=== PATIENT | female | born 1980 | race Caucasian/White ===

== ENCOUNTER → 2020-08-24 | Outpatient (CLI) | payer BC, SELFPAY ==
[2020-08-30 12:28] LABS: HPV APTIMA, High Risk Negative (Negative)
== END | disposition home or self-care (01) ==
LOC: LABSPEC 15:30
PROVIDERS: Visit Provider Student in an Organized Health Care Education/Training Program
DX: Z12.4 Encounter for screening for malignant neoplasm of cervix (principal)
CPT/HCPCS: 87624; 88175; G0145

== ENCOUNTER → 2020-08-31 08:58 | Outpatient (CLI) | payer BC, SELFPAY ==
[2020-08-31 10:05] LABS: Progesterone Level 8.43 ng/mL (See Comment)
== END ==
PROVIDERS: Visit Provider Student in an Organized Health Care Education/Training Program
DX: N97.9 Female infertility, unspecified (principal)
CPT/HCPCS: 36415; 84144

== ENCOUNTER → 2020-09-08 10:53 | Outpatient (CLI) | payer BC, SELFPAY ==
[2020-09-08 12:06] LABS: Estradiol 65.5 pg/mL; Follicle Stimulating Hormone 5.6 mIU/mL; Free T3 2.3 pg/mL (2.18-3.98); Luteinizing Hormone 4.3 mIU/mL; T4 Free Direct 1.02 ng/dL (0.76-1.46); Thyroid Stim Hormone (TSH) 0.56 uIU/mL (0.358-3.74)
[2020-09-08 14:59] LABS: HIV - WCH Non-Reactive (Nonreactive); Hepatitis B Surface Antibody Non-Reactive; Hepatitis B Surface Antigen Non-Reactive (Nonreactive); Rubella IgG Reactive (Nonreactive); Syphilis Antibodies Non-reactive
[2020-09-12 13:35] LABS: Anti-Mullerian Hormone,Serum 0.463 ng/mL (.); V-Zoster IgG (Immunity) 1218 index (Immune >165)
== END ==
PROVIDERS: Visit Provider Student in an Organized Health Care Education/Training Program
DX: N97.9 Female infertility, unspecified (principal)
CPT/HCPCS: 36415; 82670; 83001; 83002; 83036; 83516; 84439; 84443; 84481; 86703; 86706; 86762; 86780; 86787; 87340

== ENCOUNTER 2023-07-09 18:45 | Inpatient (IN) | payer BC, SELFPAY ==
[2023-07-09 19:19] VITALS: BMI 34.4
[2023-07-09 19:34] VITALS: BP 136/75; PULSE 89; PULSE 91; RESP 18; TEMP 36.9; O2SAT 96; O2SAT 97
[2023-07-09] MEDS: Lactated Ringers 1,000 ML 50 ML IV (20:01)
[2023-07-09 20:15] LABS: Absolute Lymphocyte Count 2.12 X10^3/uL (0.83-4.51); Absolute Neutrophil Count 6.6 X10^3/uL (2.0-7.7); Basophil# 0.02 X10^3/uL; Basophil% 0.2 % (0-1); Hematocrit 35.9 % (37-47); Hemoglobin 12.3 g/dL (12.0-15.0); Lymphocyte # 2.12 X10^3/ul (0.83-4.51); Lymphocyte % 22.2 % (19-41); Mean Corp Hgb Conc 34.3 g/dL (32-36); Mean Corpuscular Hgb 31.1 pg (27.0-32.0); Mean Corpuscular Volume 90.9 fL (81-99); Mean Platelet Vol. 10.2 fl (6.2-12.0); Monocyte# 0.66 X10^3/uL; Monocyte% 6.9 % (0-10); NRBC Flagged by Analyzer 0 % (0-5); Neutrophil # 6.58 X10^3/uL (2.7-7.7); Neutrophil % 69.1 % (47-70); Platelet Count 256 K/mm3 (150-450); RBC Distribution Width CV 13.2 % (11.6-14.6); RBC Distribution Width SD 44.1 fl (35.1-43.9); Red Blood Count 3.95 M/mm3 (4.2-5.4); White Blood Count 9.5 K/mm3 (4.4-11.0)
[2023-07-09] MEDS: 0.9% Normal Saline Single 100 ML IV.SOLN. INTRA-UTER (20:45)
--- NOTE | 2023-07-09 20:48 | PCM.HP.OB ---
HPI - General General Date of Admission: 07/09/23 Date of Service: 07/09/23 Chief Complaint: induction of labor HPI Narrative MELO LAI, is a 43 F who presents 1 para 0 for induction of labor due to age greater than 40 years of age. This was an in vitro that started as a Di Di twin gestation resulted in a single intrauterine . Past medical history significant for Graves' disease. Past medical history significant for Graves' disease, she had an abnormal 1 hour diabetes screen during the and a normal 3-hour test. She has a history of infertility. Social history she denies any tobacco alcohol or drug use Past surgical history significant for D&C with polypectomy Maternal Data Information Final EREN: 07/14/23 Gestational age: 39 2/7 PFSH PFS Medical History (Updated 07/09/23 @ 20:[address] Silvia Lancaster MD) Autoimmune disease Infertility Thyroid disorder Home Medications aspirin 81 mg chewable tablet (Aspirin Childrens) 2 tab PO DAILY pre-e prevention 07/09/23 [History Last Taken 07/09/23 08:00 2 tabs] vit no.164-ferrous gluconate 6 mg-folate 833.5 mcg DFE tablet ( PNV) 1 tab PO DAILY 07/09/23 [History Last Taken 07/09/23 08:00 1 TAB] Allergy/AdvReac Type Severity Reaction Status Date / Time No Known Allergies Allergy Verified 07/09/23 19:29 Surgical History (Updated 07/09/23 @ 20:16 by Erica Lind) History of surgery Social History Smoking Status: Former smoker History Elective abortions Hx Para 0 Spontaneous abortions Hx # Term Pregnancies Ectopic pregnancies Hx # Pregnancies Multiple births # of living children ROS Constitutional Constitutional: Denies fatigue, fever(s) or malaise Eyes Eyes: Denies change in vision ENT HEENT: Denies dizziness or headache(s) Cardiovascular Cardiovascular: Denies chest pain, dyspnea or lightheadedness Respiratory/Chest Respiratory/Chest: Denies cough or dyspnea Gastrointestinal Gastrointestinal: Denies change in bowel habits Genitourinary Genitourinary: Denies burning urination or genital lesions Integumentary Integumentary: Denies rash Neurologic Neurologic: Denies confusion, dizziness, headache(s), numbness or weakness Vital Signs Vital Signs Vital Signs: 07/09/23 19:34 07/09/23 19:34 07/09/23 19:34 Temperature Temperature Source Pulse Rate 89 Respiratory Rate Blood Pressure 136/75 H BP Systolic 136 BP Diastolic 75 Pulse Ox 96 07/09/23 19:34 07/09/23 19:34 07/09/23 19:34 Temperature Temperature Source Temporal Pulse Rate 91 Respiratory Rate Blood Pressure 136/75 H BP Systolic 136 BP Diastolic 75 Pulse Ox 07/09/23 19:34 07/09/23 19:34 07/09/23 19:34 Temperature 98.5 F Temperature Source Pulse Rate Respiratory Rate 18 Blood Pressure BP Systolic BP Diastolic Pulse Ox 97 Weight Weight: 96.672 kg Body Mass Index (BMI) 34.4 Physical Exam Const alert and no apparent distress General Appearance: cooperative HEENT normocephalic Resp normal respiratory effort Cardio regular rate GI soft to palpation GI Narrative: gravid, nontender, appropriate for gestational age Extremity no calf tenderness General Extremity: edema Skin no wounds Rashes: No rashes noted Psych activity/motor behavior normal Labs Labs Labs: Blood Type Pending Antibody Screen Pending Hct 35.9 % (37-47) L Hgb 12.3 g/dL (12.0-15.0) Syphilis Total Ab Non-reactive VZV IgG Antibody 1218 index (Immune >165) Rubella IgG Antibody Reactive (Nonreactive) Hep Bs Antigen Non-Reactive (Nonreactive) HIV 1&2 Antibody Non-Reactive (Nonreactive) Assessment & Plan (1) Advanced maternal age (AMA), 40 years or greater: PLAN: Estimated weight less than 4500 g clinically and pelvis clinically adequate to expect vaginal delivery. Risk benefits and alternatives to induction were discussed with patient, her questions were answered to her satisfaction she desires to proceed. Cervix is 0.5 cm, 50% effaced, -2 station, medium consistency and mid position. Randle catheter placed over stylette in usual sterile fashion and the balloon inflated to 30 cc with normal saline. Placement over internal cervical os confirmed patient and fetus tolerated the procedure well. (2) Supervision of high risk elderly multigravida in third trimester: (3) 39 weeks gestation of : (4) resulting from in-vitro fertilization:
[2023-07-09] MEDS: miSOPROStol 25 MCG TABLET VAGINAL (21:14)
[2023-07-09 22:06] LABS: Syphilis Antibodies Non-reactive
[2023-07-09 23:47] VITALS: BP 136/78; PULSE 76
[2023-07-09 23:48] VITALS: BP 136/78; PULSE 76; RESP 16; TEMP 37.2; O2SAT 98
[2023-07-10] VITALS (51 sets, daily range): BP systolic 99–142; BP diastolic 56–80; PULSE 68–100; RESP 15–20; TEMP 36.4–37.5; O2SAT 80–100
[2023-07-10] MEDS: Oxytocin 15 Units/NS 250ml 15 UNITS/250 ML IV.SOLN 2 UNITS IV (01:15)
[2023-07-10] MEDS: Ondansetron 4 MG/2 ML Vial IV (08:48)
[2023-07-10] MEDS: proCHLORPERazine 10 MG/2 ML Vial IV (09:30)
[2023-07-10] MEDS: 0.9% Saline Lock 10 ML Syringe IV (09:31)
[2023-07-10] MEDS: LACTATED RINGERS 500 ML 999 ML IV ×2 (09:40→23:33)
[2023-07-10] MEDS: fentaNYL-bupivacaine (epidural) 100 ML BAG EPIDURAL ×3 (10:42→20:30)
[2023-07-10] MEDS: Lactated Ringers 1,000 ML 200 ML IV ×3 (13:23→22:45)
[2023-07-10] MEDS: Oxytocin 15 Units/NS 250ml 15 UNITS/250 ML IV.SOLN 20 UNITS IV (20:35)
[2023-07-11] VITALS (48 sets, daily range): BP systolic 100–139; BP diastolic 55–89; PULSE 76–146; RESP 16–18; TEMP 36.1–36.9; O2SAT 97–99
[2023-07-11] MEDS: Oxytocin 10 UNITS/ML Vial IM (04:04)
--- NOTE | 2023-07-11 04:08 | OP.PCM_ITS ---
Maternal Data Information Final EREN: 07/14/23 Gestational age: 39&4 Vaginal Delivery Maternal Presentation Maternal Presentation: Medically Indicated Induction Type of Induction: Pitocin, Randle Bulb and Amniotomy Operative Information Date of Procedure: 07/11/23 Pre-Operative Diagnosis: (1) AMA (2) IVF Post-Operative Diagnosis: Same Surgery / Procedure Performed: Vacuum Assisted Vaginal Delivery curriculum and instruction specialist #1: Yvonne Ventura Type of Anesthesia: Epidural Drain: Randle to straight drain Estimated Blood Loss: 400ml Findings Description of Procedure: Patient was pushing well for 4.5 hours but was getting fatigued. She was counseled and decision made for vacuum assisted vaginal delivery. Patient prepped & draped when C/C/+2. head position confirmed. Then vacuum placed on head and positioning confirmed for this as well. With the next push gentle traction placed on vacuum for good descent. After the contraction the vacuum was released. The vacuum was replaced as next contraction started and process repeated for a total of 4 pulls of the vacuum with no pop offs. After the fourth pull the vacuum was released as the head delivered. head gently guided to allow delivery of anterior and posterior shoulders. No excess traction placed on head. Body delivered a nd 3VC clamped & cut in delayed fashion. Placenta delivered with gentle traction and good uterine tone obtained. Presentation: ADAN Amniotic Membrane Rupture Type: Artificial Amniotic Fluid Description: Clear Placental Delivery Description: Expressed Placenta Disposition: [facility] Specimen(s) Removed: Placenta Cord Vessel Description: 3 Vessels Cord Entanglement: None Infant A Gender: Female (1 minute): 8 (5 minute): 9 Delayed Cord Clamping: Yes Post Vaginal Delivery Medications Given After Delivery: IV Pitocin and IM Pitocin Episiotomy Description: None Laceration: 2nd degree (repaired with 3-0 vicryl) Complication Complications: None
[2023-07-11] MEDS: Oxytocin 15 Units/NS 250ml 15 UNITS/250 ML IV.SOLN 83 UNITS IV (04:10)
[2023-07-11] MEDS: Ibuprofen 600 MG Tablet PO ×2 (08:34→19:47)
[2023-07-11] MEDS: Benzocaine/Lanolin/Aloe Vera 1 SPRAY EACH TOPICAL (08:35)
[2023-07-12 00:06] VITALS: BP 110/58; PULSE 75
[2023-07-12 00:10] VITALS: BP 110/58; PULSE 75; RESP 16; TEMP 36.8
[2023-07-12 04:00] VITALS: PULSE 87; O2SAT 96
[2023-07-12 04:01] VITALS: BP 110/55; PULSE 87; PULSE 88; RESP 16; TEMP 36.3; O2SAT 96
--- NOTE | 2023-07-12 06:59 | PCM.PN.OB ---
Subjective Subjective Doing well. Minimal lochia. Breast feeding improving. Ambulating and voiding well. Objective Data Objective Data Vital Signs: Vital Signs Temp Pulse Resp BP Pulse Ox O2 Del Method 97.3 F L 87 16 110/55 L 96 Room Air 07/12/23 04:01 07/12/23 04:01 07/12/23 04:01 07/12/23 04:01 07/12/23 04:01 07/12/23 04:01 Oxygen Delivery Method Room Air Weight: 96.672 kg Body Mass Index (BMI) 34.4 Intake & Output: Intake and Output for Last 24 Hours 07/10/23 07/11/23 07/12/23 23:59 23:59 23:59 Intake Total 4108.16 / 4108.16 1899.67 / 1899.67 Output Total 1400 / 1400 1550 / 1550 Balance 2708.16 / 2708.16 349.67 / 349.67 Lab / Micro Data 07/09/23 20:00 ROS Constitutional Constitutional: Denies fatigue, fever(s) or malaise Eyes Eyes: Denies change in vision ENT HEENT: Denies dizziness or headache(s) Cardiovascular Cardiovascular: Denies chest pain, dyspnea or lightheadedness Respiratory/Chest Respiratory/Chest: Denies cough or dyspnea Gastrointestinal Gastrointestinal: Denies change in bowel habits Genitourinary Genitourinary: Denies burning urination or genital lesions Integumentary Integumentary: Denies rash Neurologic Neurologic: Denies confusion, dizziness, headache(s), numbness or weakness Physical Exam Const alert and no apparent distress Narrative: Fundus firm, below umbilicus. Assessment & Plan (1) 39 weeks gestation of : (2) Advanced maternal age (AMA), 40 years or greater: (3) (spontaneous vaginal delivery): PLAN: discharge home
--- NOTE | 2023-07-12 07:03 | PCM.DC.SUM ---
Providers Date of Admission: 07/09/23 Date of Discharge: 07/12/23 Primary Care Physician: Guadalupe Primary Care Phys Reason For Visit: VAG Diagnosis Discharge Diagnosis (1) 39 weeks gestation of : Status: Acute Code(s): Z3A.39 - 39 weeks gestation of (2) Advanced maternal age (AMA), 40 years or greater: Status: Acute (3) (spontaneous vaginal delivery): Status: Acute Code(s): O80 - Encounter for full-term uncomplicated delivery Plan: discharge home Medications at Discharge Home Medications vit no.164-ferrous gluconate 6 mg-folate 833.5 mcg DFE tablet ( PNV) 1 tab PO DAILY 07/09/23 Hospital Course Operations None Procedures None Summary of Care Provided Minutes Spent on Discharge: 20 Physical Exam Const alert and no apparent distress Narrative: Fundus firm, below umbilicus. Weight / BMI Weight Weight: 96.672 kg Body Mass Index (BMI) 34.4 ABG / Lab / Microbiology Data 07/09/23 20:00 D/C Instructions Discharge Diet: No restrictions May resume sexual activity in: 6 weeks Please Follow Up With: Silvia Lancaster MD When: Follow up with our office in 1-2 and 6 weeks or as needed. [phone] Meaningful Use Info Meaningful Use Diagnoses (Choose all that apply): None applicable Discharge Plan Admission Admit Date/Time: 07/09/23 18:45 Primary Reason for Your Visit: labor and delivery Attending Provider: Tamela Jackson Primary Care Provider: Care Physician,Guadalupe Primary Instructions Patient Instructions: After a Vaginal Discharge Orders/Prescriptions Prescriptions: Continued Charisma PNV 6 mg iron- 833.5 mcg DFE tablet 1 tab PO DAILY Discontinued aspirin [Aspirin Childrens] 81 mg tablet,chewable 2 tab PO DAILY Referrals / Follow Up: Care Physician,No Primary [Primary Care Provider] - Disposition Disposition (needs filled in before D/C Order can be placed): Home, Self Care
[2023-07-12 07:54] VITALS: BP 112/68; PULSE 86
[2023-07-12] MEDS: Senna/Docusate Sodium 1 Tablet PO (07:59)
[2023-07-12] MEDS: Ibuprofen 600 MG Tablet PO (07:59)
[2023-07-12 08:00] VITALS: BP 112/68; PULSE 86; RESP 18; TEMP 36.4
--- NOTE | 2023-07-16 10:42 | NURSING ---
Follow up phone call questions asked in person at visit on 07/14/23. Pt. reports feeling well. Has been pumping every 2-3 hours to stimulate milk production. Recovering well from delivery. Denies s+s. Family does not have questions at this time. Seen both 07/12 and 07/13 by and 07/14 by nursing staff for weight and jaundice checks for .
== END 2023-07-12 11:45 | disposition home or self-care (01) | DRG 807 ==
PROVIDERS: Obstetrics & Gynecology; Admitting Provider Obstetrics & Gynecology; Visit Provider Obstetrics & Gynecology
DX: O75.81 Maternal exhaustion complicating labor and delivery (principal); Z37.0 Single live birth; O30.093 Twin pregnancy, unable to determine number of placenta and number of amniotic sacs, third trimester; O31.23 Continuing pregnancy after intrauterine death of one fetus or more, third trimester; Z3A.39 39 weeks gestation of pregnancy; Z87.891 Personal history of nicotine dependence; Z79.82 Long term (current) use of aspirin
CPT/HCPCS: 59025; 59050; 85025; 86780; 86850; 86900; 86901; 99221; J7120; A4216; G0378; J2405